=== PATIENT | female | born 1965 | race Caucasian/White ===

== ENCOUNTER 2017-09-29 04:09 | Emergency (ER) | payer OTHER, MEDICAID, SELFPAY ==
--- NOTE | 2017-09-29 04:21 | DI.RAD.S_ITS ---
PROCEDURE: XR PELVIS 1-2V INDICATIONS: Right hip pain fall TECHNIQUE: 1 view(s) of the pelvis acquired. COMPARISON: None. FINDINGS: Bones: No definitive fractures or dislocations. A subtle density in the right femoral neck is noted. No suspicious bony lesions. Soft tissues: Visualized bowel gas pattern is normal. No suspicious soft tissue calcifications. IMPRESSION: No definitive fractures. A subtle density is noted in the femoral neck. If clinical symptoms persist or clinical suspicion for pathology is high, advanced imaging such as CT is suggested for further evaluation. Dictated by: Janeen Scott M.D. on 09/29/2017 at 8:12 Approved by: Janeen Scott M.D. on 09/29/2017 at 8:16
--- NOTE | 2017-09-29 04:21 | DI.RAD.S_ITS ---
PROCEDURE: XR CHEST 2V INDICATIONS: Fall, pain TECHNIQUE: 2 views of the chest were acquired. COMPARISON: [facility], CR, XR CHEST 1 VIEW, 05/02/2017, 3:10. [facility], CR, XR CHEST 1 VIEW, 05/02/2017, 14:03. FINDINGS: Surgical changes and devices: There is a Port-A-Cath on the left with the tip in the superior vena cava. Lungs and pleura: A calcified granuloma in the right lower lobe. No pleural effusions or pneumothorax. Lungs are clear. Mediastinum: Mediastinal contours are normal. Heart size is normal. Bones and chest wall: No suspicious bony abnormalities. Soft tissues appear unremarkable. IMPRESSION: No acute cardiopulmonary disease. Dictated by: Janeen Scott M.D. on 09/29/2017 at 8:08 Approved by: Janeen Scott M.D. on 09/29/2017 at 8:10
--- NOTE | 2017-09-29 04:21 | DI.CT.S_ITS ---
PROCEDURE: CT HEAD/BRAIN WO CON INDICATIONS: Syncope, hemophilia TECHNIQUE: Noncontrast 4.5 mm thick angled axial sections acquired from the foramen magnum to the vertex, with coronal and sagittal reformats. For radiation dose reduction, the following was used: automated exposure control, adjustment of mA and/or kV according to patient size. COMPARISON: [facility], CT, CT HEAD WITHOUT CONTRAST, 01/25/2017, 16:19. [facility], CT, CT HEAD WITHOUT CONTRAST, 04/20/2017, 19:30. Located [facility], CT, HEAD WITHOUT CONTRAST, 02/06/2016, 4:21. FINDINGS: Image quality: Excellent. CSF spaces: Basal cisterns are patent. No extra-axial fluid collections. Ventricles are normal in size and shape. Brain: No midline shift. No intracranial masses or hemorrhage. Amaral-white matter interface is normal. Skull and face: Calvarium and visualized facial bones are intact, without suspicious lesions. Sinuses: Visualized sinuses and mastoids are clear. IMPRESSION: Normal head CT. No significant discrepancy with the production shift supervisor radiology preliminary report. Dictated by: Janeen Scott M.D. on 09/29/2017 at 7:50 Approved by: Janeen Scott M.D. on 09/29/2017 at 7:52
[2017-09-29 04:27] VITALS: BP 139/98; PULSE 84; RESP 14; TEMP 36.9; O2SAT 99
[2017-09-29] MEDS: HYDROMORPHONE 2 MG INJ 1 MG IM (04:49)
--- NOTE | 2017-09-29 05:21 | DI.RAD.S_ITS ---
PROCEDURE: XR WRIST RT 2V INDICATIONS: pain fall TECHNIQUE: 2 views of the wrist were acquired. COMPARISON: None. FINDINGS: Bones: No fractures or dislocations. No suspicious bony lesions. Soft tissues: No suspicious soft tissue calcifications. IMPRESSION: No fracture or dislocation. If clinical symptoms persist or clinical suspicion for pathology is high, a repeat examination in 7-10 days, or advanced imaging such as CT or MRI is suggested for further evaluation. Dictated by: Janeen Scott M.D. on 09/29/2017 at 8:16 Approved by: Janeen Scott M.D. on 09/29/2017 at 8:18
--- NOTE | 2017-09-29 05:45 | ED_ITS ---
HPI - Fall General Chief Complaint: Fall Stated Complaint: GLF Time Seen by Provider: 09/29/17 04:19 Source: patient and EMS Mode of arrival: EMS Limitations: no limitations History of Present Illness HPI Narrative: Patient is a 52-year-old female who presents after a fall. She has a history of hemophilia syncopal episodes and frequent falls. Tonight she says she was using the restroom when she fell and hit her right side on the counter. She did hit her head no loss of consciousness. She gives herself after every other days she thinks she gave it this morning. She also has right hip pain she is moving her leg easily though it is painful. She always has right hip pain. She is also complaining of right wrist pain. She states that she has frequent syncopal episodes and has an autonomic dysfunction and has an anaphylactic reaction to cortisone. complaint: fall Related Data Previous Rx's Medication Instructions Recorded silver sulfadiazine [Silvadene] 1 shanae TOPICAL BID #20 gm 12/29/16 Allergies Allergy/AdvReac Type Severity Reaction Status Date / Time aminocaproic acid Allergy Mild Verified 09/29/17 04:47 aspirin Allergy Mild Verified 09/29/17 04:47 ibuprofen Allergy Mild Verified 09/29/17 04:47 iodine Allergy Mild IV CONTRAST Verified 09/29/17 04:47 lidocaine Allergy Mild Verified 09/29/17 04:47 NSAIDS (Non-Steroidal Allergy Mild Verified 09/29/17 04:47 Anti-Inflamma propoxyphene Allergy Mild Verified 09/29/17 04:47 cefaclor Allergy Unknown Verified 09/29/17 04:47 cephalexin Allergy Unknown Verified 09/29/17 04:47 chlorpromazine Allergy Unknown Verified 09/29/17 04:47 codeine Allergy Unknown Verified 09/29/17 04:47 doxycycline Allergy Unknown Verified 09/29/17 04:47 morphine Allergy Unknown Verified 09/29/17 04:47 Penicillins Allergy Unknown Verified 09/29/17 04:47 Review of Systems Review of Systems All systems reviewed & are unremarkable except as noted in HPI and below Constitutional Reports as per HPI and Reports system reviewed and no additional complaints, except as docu ENT Ears, Nose, Mouth, and Throat: Denies vertigo and Denies dizziness Cardiovascular Denies chest pain, Denies syncope, Denies irregular heart rhythm, Denies lightheadedness, Denies palpitations, Denies dyspnea, Denies dyspnea on exertion and Denies orthopnea Respiratory Denies cough, Denies dyspnea, Denies dyspnea on exertion and Denies wheezing Gastrointestinal Gastrointestinal: Denies abdominal pain, Denies change in bowel habits, Denies diarrhea, Denies nausea and Denies vomiting Musculoskeletal Reports system reviewed and no additional complaints, except as docu Integumentary/Breasts Denies pruritus, Denies erythema, Denies rash and Denies wounds Neurologic Denies vertigo, Denies dizziness and Denies syncope Endocrine Denies palpitations Hematologic/Lymphatic Reports as per HPI Allergic/Immunologic Denies wheezing Exam Initial Vital Signs Initial Vital Signs: Vital Signs Temperature 98.4 F 09/29/17 04:27 Pulse Rate 84 09/29/17 04:27 Respiratory Rate 14 09/29/17 04:27 Blood Pressure 139/98 H 09/29/17 04:27 Pulse Oximetry 99 09/29/17 04:27 Const General: cooperative, healthy appearing and anxious Nutritional Appearance: average body habitus HENCT Head: normal to inspection, normocephalic, atraumatic and No abrasion Ears: hearing grossly normal bilaterally Nose: external nose normal Eyes General: appearance normal, both eyes and all related structures Neck Neck: normal visual inspection and full ROM Chest Chest: normal inspection of the chest Resp Effort & Inspection: normal respiratory effort Auscultation: clear to auscultation bilaterally, no rales, no rhonchi and no wheezes Cardio Rate: regular rate Rhythm: regular rhythm Heart Sounds: S1 normal and S2 normal GI Percussion: normal to percussion Back/Spine/Pelvis Back: normal to inspection Cervical Spine: normal cervical lordosis Thoracic/Lumbar Spine: thoracic and lumbar spine normal to inspection Sacroiliac Joints: nontender Skin Rashes: no rashes Trauma: no lacerations or abrasions Neuro General: alert, awake and oriented x3 Cranial Nerves: CN's II-XI intact bilaterally Extrem General: normal to inspection Right upper extremity: normal to inspection Left upper extremity: normal to inspection Right lower extremity: normal to inspection Left lower extremity: normal to inspection PFSH Medical History Anxiety (Acute) Hemophilia A (Acute) History of hysterectomy (Acute) Syncope (Acute) Surgical History History of appendectomy (Acute) History of cholecystectomy (Acute) Social History Smoking Status: Never smoker alcohol intake: never substance use type: does not use Course Orders Ordered: ED Orders 09/29/17 04:21 CT head/brain wo con Stat XR chest 2V Stat XR pelvis 1-2V Stat 09/29/17 05:21 XR wrist RT 2V Stat Discontinued Medications Hydromorphone HCl (Dilaudid) 1 mg IM NOW ONE Stop: 09/29/17 04:48 Last Admin: 09/29/17 04:49 Dose: 1 mg Vital Signs - 8 hr 09/29/17 04:27 09/29/17 06:00 Temperature 98.4 F Pulse Rate 84 78 Respiratory Rate 14 14 Blood Pressure 139/98 H Blood Pressure [Left Arm] 111/63 Pulse Oximetry 99 99 MDM - Fall Imaging Data CT scan - head: 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 Port placed, stable right lower lung Pelvis x-ray: Attestation: I personally reviewed and interpreted this imaging study as follows: My impression: No acute fracture similar to x-ray wrist xray: Attestation: I personally reviewed and interpreted this imaging study as follows: My impression: no fracture MDM Narrative Medical decision making narrative: Patient is extremely sensitive to any touch or movement of her extremities. There is no gross bony deformity peripheral pulses are intact there are no contusions appreciated there is no petechiae. Pain certainly appears out of proportion. No evidence of fractures or internal bleeding. Patient states that she must lie flat while going home due to her frequent syncopal episodes the autonomic dysfunction. 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
[2017-09-29 06:00] VITALS: BP 111/63; PULSE 78; RESP 14; O2SAT 99
[2017-09-29 10:34] VITALS: BP 105/66; PULSE 99; RESP 16; O2SAT 99
== END 2017-09-29 11:10 | disposition home or self-care (01) ==
PROVIDERS: Emergency Provider Emergency Medicine
DX: S09.90XA Unspecified injury of head, initial encounter (principal); W01.10XA Fall on same level from slipping, tripping and stumbling with subsequent striking against unspecified object, initial encounter
CPT/HCPCS: 70450; 71046; 72170; 73100; 99283; 99284; J1170

== ENCOUNTER 2018-02-20 11:08 | Emergency (ER) | payer OTHER, MEDICAID, SELFPAY ==
[2018-02-20 11:15] VITALS: BP 136/78; PULSE 107; RESP 20; TEMP 36.6; O2SAT 99; BMI 16.0
--- NOTE | 2018-02-20 11:20 | PC.NURSE ---
went to access pts implanted port pt states please don't poke me I am about to pass out Pt non-responsive to stimuli, pt has strong carotid pulse, equal rise and fall of chest. Provider called to bedside. pt Alert and oriented after 5 seconds of what appears to by syncope episode. provider at bedside assessing pt. No new orders at this time
--- NOTE | 2018-02-20 11:24 | ED.ALLEREA ---
HPI - Allergic Reaction General Chief complaint: Allergic Reaction Stated complaint: anaphalatic shock Time Seen by Provider: 02/20/18 11:15 Source: patient Mode of arrival: wheelchair Limitations: no limitations History of Present Illness HPI narrative: Patient is a 52-year-old female who is allergic to all cane medications. She was at the eye doctor she got proparacaine is was immediately flushed with loss of fluid. She is starting to feel like her throat is swelling. She has some itching. She has a history of autonomic problems syncopal episodes and hemophilia. She frequently passes out and gets tachycardia due to autonomic system. She feels like her heart is racing now. She has not yet had epi. MD complaint: allergic reaction Symptoms: difficulty breathing Severity: mild Treatment prior to arrival: none Related Data Previous Rx's Medication Instructions Recorded silver sulfadiazine [Silvadene] 1 shanae TOPICAL BID #20 gm 12/29/16 Allergies Allergy/AdvReac Type Severity Reaction Status Date / Time aminocaproic acid Allergy Mild Verified 09/29/17 04:47 aspirin Allergy Mild Verified 09/29/17 04:47 ibuprofen Allergy Mild Verified 09/29/17 04:47 iodine Allergy Mild IV CONTRAST Verified 09/29/17 04:47 lidocaine Allergy Mild Verified 09/29/17 04:47 NSAIDS (Non-Steroidal Allergy Mild Verified 09/29/17 04:47 Anti-Inflamma propoxyphene Allergy Mild Verified 09/29/17 04:47 cefaclor Allergy Unknown Verified 09/29/17 04:47 cephalexin Allergy Unknown Verified 09/29/17 04:47 chlorpromazine Allergy Unknown Verified 09/29/17 04:47 codeine Allergy Unknown Verified 09/29/17 04:47 doxycycline Allergy Unknown Verified 09/29/17 04:47 morphine Allergy Unknown Verified 09/29/17 04:47 Penicillins Allergy Unknown Verified 09/29/17 04:47 Review of Systems Review of Systems All systems reviewed & are unremarkable except as noted in HPI and below Constitutional Denies chills, Denies fever(s), Denies lethargy and Denies weakness Cardiovascular Reports rapid heart rate, Denies dyspnea and Denies dyspnea on exertion Respiratory Denies cough, Denies dyspnea, Denies dyspnea on exertion and Denies wheezing Gastrointestinal Gastrointestinal: Denies abdominal pain, Denies change in bowel habits, Denies diarrhea, Denies nausea and Denies vomiting Integumentary/Breasts Denies pruritus, Denies erythema, Denies rash and Denies wounds Neurologic Reports as per HPI and Denies weakness Allergic/Immunologic Denies wheezing PFSH Medical History Anxiety (Acute) Hemophilia A (Acute) History of hysterectomy (Acute) Syncope (Acute) Surgical History History of appendectomy (Acute) History of cholecystectomy (Acute) Social History Smoking Status: Never smoker alcohol intake: never substance use type: does not use Exam Initial Vital Signs Initial Vital Signs: Vital Signs Temperature 97.8 F 02/20/18 11:15 Pulse Rate 107 H 02/20/18 11:15 Respiratory Rate 20 02/20/18 11:15 Blood Pressure 136/78 02/20/18 11:15 Pulse Oximetry 99 02/20/18 11:15 GENERAL: Alert well-appearing female in her wheelchair HEENT: Head atraumatic,EOMI, pupils reactive, face symmetric, no tongue swelling or lip swelling appreciated no stridor speaking in full sentences CARDIOVASCULAR: Regular rate and rhythm without murmurs, rubs or gallops. RESPIRATORY: Breath sounds equal bilaterally, no wheezes rales or rhonchi. ABDOMEN: Soft, nontender. Normoactive bowel sounds all 4 quadrants. No guarding or rebound. EXTREMITIES: Normal range of motion, no clubbing or edema. Neurovascularly intact NEUROLOGICAL: Alert and oriented x4. SKIN: Warm, dry, no laceration, no petechiae, no rashes or lesions. Course Orders Ordered: Discontinued Medications Diphenhydramine HCl (Benadryl) 25 mg IV NOW ONE Stop: 02/20/18 11:17 Last Admin: 02/20/18 11:46 Dose: 25 mg Epinephrine HCl (Adrenalin) 0.3 mg IM NOW ONE Stop: 02/20/18 11:17 Last Admin: 02/20/18 11:47 Dose: 0.3 mg Sodium Chloride (Normal Saline 0.9%) 1,000 mls @ 1,000 mls/hr IV BOLUS ONE Stop: 02/20/18 12:37 Last Infusion: 02/20/18 12:49 Dose: 0 mls/hr Admin: 02/20/18 11:47 Dose: 1,000 mls/hr Methylprednisolone (Solu-Medrol 125 Mg Vial) 125 mg IV NOW ONE Stop: 02/20/18 11:17 Last Admin: 12/26/18 11:47 Dose: 125 mg Vital Signs - 8 hr 02/20/18 12:30 Pulse Rate 93 H Respiratory Rate 12 Blood Pressure [Left Arm] 110/58 L Blood Pressure [Right Arm] 94/48 L Pulse Oximetry 98 MDM - Allergic Reaction MDM Narrative Medical decision making narrative: Patient has a autonomic dysfunction. Heart rate initially quite elevated in the 140s. She actually passed out when her heart rate reached of over 150 was brief. She quickly turn. She states that this happens to her often. Her heart rate improved and returned to the 90s which is normal for her. The she had no further swelling in her throat and felt that the epinephrine though increased her heart rate actually helped. She feels ready and able to go. Discharge Plan Departure Patient Disposition: Home Clinical Impression: Anaphylaxis Discharge Date/Time: 02/20/18 12:59 Interventions: ED Discharge Assessment Last Done: 02/20/18 12:58 Instructions: Anaphylaxis Activity Restrictions/Additional Instructions: *You have been diagnosed with allergic reaction *What to do: Avoid all -sandra drugs *Continue to take medications as directed *Follow up with your primary care provider in 2-3 days *Return to ER if you should have difficulty swallowing, increased swelling of tongue lips or any new, worsening or concerning symptoms Prescriptions: No Action silver sulfadiazine [Silvadene] 1 % cream 1 shanae Topical BID Qty: 20 RF: 0 Referrals: Christy Sarabia MD [Primary Care Provider] -
[2018-02-20] MEDS: diphenhydrAMINE 50 MG/ML VIAL 25 MG IV (11:46)
[2018-02-20] MEDS: EPINEPHrine 1 MG/ML AMPUL 0.3 MG IM (11:47)
[2018-02-20] MEDS: methylPREDNISolone 125 MG/2 ML VIAL IV (11:47)
[2018-02-20] MEDS: SODIUM CHLORIDE 0.9% 1,000 ML 1000 ML IV (11:47)
[2018-02-20 12:30] VITALS: BP 110/58; BP 94/48; PULSE 93; PULSE 94; RESP 12; RESP 20; O2SAT 97; O2SAT 98
--- NOTE | 2018-02-20 12:31 | PC.NURSE ---
pts right pupil diolated with proparicaine [employer]. provider aware no new orders at this time.
== END 2018-02-20 12:59 | disposition home or self-care (01) ==
PROVIDERS: Emergency Provider Emergency Medicine; PCP Family Medicine
DX: T78.2XXA Anaphylactic shock, unspecified, initial encounter (principal); R00.2 Palpitations
CPT/HCPCS: 36591; 96361; 96372; 96374; 96375; 99283; 99284; J0171; J1200; J2930

== ENCOUNTER 2018-03-15 05:14 | Emergency (ER) | payer OTHER, MEDICAID, SELFPAY ==
[2018-03-15 05:25] VITALS: BP 135/73; PULSE 110; RESP 20; TEMP 36.9; O2SAT 100; BMI 16.6
--- NOTE | 2018-03-15 06:16 | PC.NURSE ---
Bacitracin to lesions on r face,back and right shoulder.
[2018-03-15 06:27] VITALS: BP 95/55; PULSE 87; RESP 18; O2SAT 98
--- NOTE | 2018-03-28 09:13 | ED.CHESTPAIN ---
HPI - Chest Pain General Chief Complaint: Chest Pain Stated Complaint: Chest Pain Time Seen by Provider: 03/15/18 05:32 Source: patient and EMS Mode of arrival: EMS Limitations: no limitations History of Present Illness HPI narrative: Patient complains of lesions on her skin which she believes are infected with Staph bacteria. She originally reported to EMS that she had chest pain, but states that she is just concerned about the lesions on her chest. She denies any shortness of breath, syncope or near-syncope, nausea or vomiting, dizziness, or diaphoresis. She denies any pain deep within her chest. She states she has had lesions on her skin for some time, and has noticed some randomly on her chest and arm. Patient states that the lesions, and then they go away usually on their own. She wants to be checked for infection. She denies fevers. She denies drug use. No other complaints at this time. Related Data Previous Rx's Medication Instructions Recorded silver sulfadiazine [Silvadene] 1 shanae TOPICAL BID #20 gm 12/29/16 Allergies Allergy/AdvReac Type Severity Reaction Status Date / Time aminocaproic acid Allergy Mild Verified 09/29/17 04:47 aspirin Allergy Mild Verified 09/29/17 04:47 ibuprofen Allergy Mild Verified 09/29/17 04:47 iodine Allergy Mild IV CONTRAST Verified 09/29/17 04:47 lidocaine Allergy Mild Verified 09/29/17 04:47 NSAIDS (Non-Steroidal Allergy Mild Verified 09/29/17 04:47 Anti-Inflamma propoxyphene Allergy Mild Verified 09/29/17 04:47 cefaclor Allergy Unknown Verified 09/29/17 04:47 cephalexin Allergy Unknown Verified 09/29/17 04:47 chlorpromazine Allergy Unknown Verified 09/29/17 04:47 codeine Allergy Unknown Verified 09/29/17 04:47 doxycycline Allergy Unknown Verified 09/29/17 04:47 morphine Allergy Unknown Verified 09/29/17 04:47 Penicillins Allergy Unknown Verified 09/29/17 04:47 Review of Systems Constitutional Denies chills, Denies fever(s), Denies lethargy and Denies weakness Eyes Denies change in vision, Denies eye discharge, Denies irritation and Denies loss of vision ENT Ears, Nose, Mouth, and Throat: Denies change in voice, Denies neck pain and Denies sore throat Cardiovascular Denies chest pain, Denies irregular heart rhythm, Denies lightheadedness, Denies palpitations, Denies dyspnea, Denies dyspnea on exertion and Denies orthopnea Respiratory Denies cough, Denies dyspnea, Denies dyspnea on exertion and Denies wheezing Gastrointestinal Gastrointestinal: Denies abdominal pain, Denies change in bowel habits, Denies diarrhea, Denies nausea and Denies vomiting Genitourinary Denies hematuria, Denies flank pain, Denies urinary incontinence and Denies urinary urgency Musculoskeletal Denies neck pain Integumentary/Breasts Denies pruritus, Denies erythema, Reports rash and Denies wounds Neurologic Denies confusion, Denies loss of vision and Denies weakness Psychiatric Denies anxiety, Denies confusion, Denies depression, Denies homicidal ideation and Denies suicidal ideation Endocrine Denies palpitations Hematologic/Lymphatic Denies easy bruising Allergic/Immunologic Denies wheezing [facility] Medical History Anxiety (Acute) Hemophilia A (Acute) History of hysterectomy (Acute) Syncope (Acute) Surgical History History of appendectomy (Acute) History of cholecystectomy (Acute) Social History Smoking Status: Never smoker alcohol intake: never substance use type: does not use Social History Smoking Status: Never smoker alcohol intake: never substance use type: does not use Exam Initial Vital Signs Initial Vital Signs: Vital Signs Temperature 98.4 F 03/15/18 05:25 Pulse Rate 110 H 03/15/18 05:25 Respiratory Rate 20 03/15/18 05:25 Blood Pressure 135/73 03/15/18 05:25 Pulse Oximetry 100 03/15/18 05:25 Const General: cooperative and well developed Nutritional Appearance: well nourished Orientation: alert, awake, oriented x3 and not confused [facility] Head: normocephalic and atraumatic Ears: external ears normal and TM's normal bilaterally Nose: external nose normal and No nasal discharge Face and sinus: sinuses nontender, face symmetric, no sinus tenderness and No dry mucous membranes Mouth: oral mucosae normal and moist mucous membranes Teeth and gingiva: dentition normal Throat: tonsils normal and uvula midline Eyes General: appearance normal, both eyes and all related structures Eyelids: eyelids normal Conjunctivae: conjunctivae normal Sclera: sclerae normal Pupils: PERRL EOM: EOM intact bilaterally Neck Neck: normal visual inspection, trachea midline, No lymphadenopathy, No midline deformity and No JVD Lymphatic: No lymphedema Chest Chest: normal inspection of the chest Resp Effort & Inspection: normal respiratory effort, able to speak in complete sentences, no respiratory distress and no use of accessory muscles Auscultation: clear to auscultation bilaterally, no rales, no rhonchi and no wheezes Cardio Rate: regular rate Rhythm: regular rhythm Heart Sounds: no click, no gallops, no murmurs and no rubs Pulses: normal peripheral pulses GI Inspection: non-distended Palpation: soft, no hepatosplenomegaly, No guarding, No pulsatile mass and No tender Auscultation: normal bowel sounds Back/Spine/Pelvis Back: No CVA tenderness Cervical Spine: cervical ROM normal and No pain with cervical ROM Thoracic/Lumbar Spine: thoracic and lumbar spine normal to inspection Skin General: No jaundice and No petechiae Lesions: lesion noted (Patient has occasional scabbed lesions on her chest wall and arms. There is mild erythema in the immediate area of the lesions, appropriate for the lesions themselves. No fluctuance or drainage. Some lesions are excoriated, and scab has been scratched off.) Neuro General: alert, oriented x3, gait normal and no focal motor deficits Speech: speech normal Extrem General: full ROM, no clubbing, cyanosis or edema, no pedal edema and no calf tenderness Psych Appearance: well kempt Mental Status: mental status grossly normal Attitude: cooperative Thought Content: normal and suicidality Judgment: judgment good Course Course Narrative: I discussed the patient that her lesions do not appear infected, and that I would not start oral antibiotics at this time. I have advised the patient to use antibiotic ointment if she wants to keep the areas clean, and to avoid scratching. I do not find any evidence of concerning chest pain either earlier at this time. Patient is deemed stable for discharge home. MDM - Chest Pain Medical Records Data Attestation: I reviewed the patient's medical records. Discharge Plan Departure Patient Disposition: Home Clinical Impression: Skin lesion Discharge Date/Time: 03/15/18 07:10 Interventions: ED Discharge Assessment Last Done: 03/15/18 07:33 Instructions: DI for Rash Activity Restrictions/Additional Instructions: Your lesions do not appear to be infected with Staph bacteria at this time. However, you may use the antibiotic ointment to help prevent skin bacteria from infecting the wounds. Prescriptions: No Action silver sulfadiazine [Silvadene] 1 % cream 1 shanae Topical BID Qty: 20 RF: 0 Referrals: Christy Sarabia MD [Primary Care Provider] -
== END 2018-03-15 07:10 | disposition home or self-care (01) ==
PROVIDERS: Emergency Provider Emergency Medicine; PCP Family Medicine
DX: L98.9 Disorder of the skin and subcutaneous tissue, unspecified (principal)
CPT/HCPCS: 93005; 93010; 99282; 99283